=== PATIENT | female | born 1950 | race African-American/Black ===

== ENCOUNTER 2019-04-16 04:47 | Inpatient (IN) | payer OTHER, MEDICARE ==
[2019-04-16] VITALS (11 sets, daily range): BP systolic 84–116; BP diastolic 33–61
[~2019-04-16] VITALS: Ht 162.6 cm; Wt 66.2 kg
[2019-04-16] MEDS ORDERED: SODIUM CHLORIDE 0.9% 1,000 ML IV ONE (04:52)
[2019-04-16] MEDS ORDERED: ONDANSETRON HCL 4MG/2ML INJ IV STA (04:52)
[2019-04-16] MEDS ORDERED: ACETAMINOPHEN 650MG SUPP PR STA (04:52)
[2019-04-16] MEDS ORDERED: DEXTROSE 50% WATER 50ML SYRINGE IV ONE ×2 (04:57→05:00)
[2019-04-16] MEDS ORDERED: VANCOMYCIN 1 G PREMIX 200 ML IV ONE (05:00)
[2019-04-16] MEDS ORDERED: PIPERACILLIN/TAZ 3.375G PREMIX 50 ML IV ONE (05:00)
[2019-04-16] MEDS ORDERED: DEXT 10% WATER 1,000 ML IV ONE (05:00)
[2019-04-16 05:18] LABS: MEAN CORPUSCULAR HEMOGLOBIN 26.8 pg (28.0-32.0); MEAN CORPUSCULAR VOLUME 84.2 fL (81.0-99.0); MEAN PLATELET VOLUME 7.8 fl (7.4-10.4); PLATELET 109 x1000/uL (130-400); RED BLOOD CELL COUNT 1.85 mill/uL (4.2-5.4); RED CELL DISTRIBUTION WIDTH 14.9 % (11.6-14.6)
[2019-04-16 05:26] LABS: CHLORIDE 120 mEq/L (98-107); HEMATOCRIT. 15.6 % (36.0-48.0)
[2019-04-16 05:30] LABS: ETHANOL BLOOD < 10 mg/dL
[2019-04-16 05:54] LABS: PLATELET ESTIMATE DECREASED
[2019-04-16 06:33] LABS: CLARITY URINE CLOUDY (CLEAR); COLOR URINE YELLOW (YELLOW); KETONES URINE TRACE (NEGATIVE); LEUKOCYTE ESTERASE URINE NEGATIVE (NEGATIVE); NITRITE URINE NEGATIVE (NEGATIVE); OCCULT BLOOD URINE 1+ (NEGATIVE); PROTEIN URINE 1+ (NEGATIVE); SPECIFIC GRAVITY URINE 1.015 (1.005-1.030); UROBILINOGEN URINE 0.2 E.U./dL (0.2-1.0)
[2019-04-16 06:43] LABS: *BENZODIAZEPINES SCREEN URINE PRESUMTIVE POSITIVE (NEGATIVE); *COCAINE SCREEN URINE NEGATIVE (NEGATIVE); METHADONE URINE SCREEN NEGATIVE (NEGATIVE); OPIATES URINE SCREEN NEGATIVE (NEGATIVE); PHENCYCLIDINE URINE SCREEN NEGATIVE (NEGATIVE)
[2019-04-16 06:44] LABS: *AMPHETAMINES SCREEN URINE NEGATIVE (NEGATIVE); *BARBITURATES SCREEN URINE NEGATIVE (NEGATIVE); CANNABINOID URINE SCREEN NEGATIVE (NEGATIVE)
[2019-04-16] MEDS ORDERED: IBUPROFEN 400MG TABLET PO ONE (07:00)
[2019-04-16] MEDS ORDERED: ONDANSETRON HCL 4MG/2ML INJ IV PRN (10:00)
[2019-04-16] MEDS ORDERED: ACETAMINOPHEN 325MG TABLET PO PRN (10:00)
[2019-04-16] MEDS ORDERED: DEXTROSE 50% WATER 50ML SYRINGE IV PRN (10:45)
[2019-04-16] MEDS: BLOOD SUGAR DIAGNOSTIC STRIP TEST SCH ×3 (11:47→20:52)
[2019-04-16] MEDS ORDERED: DEXTROSE 10% WATER 1,000 ML IV SCH (12:30)
[2019-04-16 13:20] LABS: HEMATOCRIT 34.9 % (36.0-48.0); HEMOGLOBIN 11.5 g/dL (12.0-16.0)
[2019-04-16] MEDS: PIPERACILLIN/TAZOBACTAM 2.25 G in DEXTROSE 5% WATER 50 ML IV SCH ×3 (13:26→23:51)
[2019-04-17] VITALS (12 sets, daily range): BP systolic 96–152; BP diastolic 39–80
[2019-04-17] MEDS: PIPERACILLIN/TAZOBACTAM 2.25 G in DEXTROSE 5% WATER 50 ML IV SCH ×3 (04:58→17:24)
[2019-04-17] MEDS ORDERED: VANCOMYCIN 1 G PREMIX 200 ML IV SCH (06:00)
[2019-04-17] MEDS ORDERED: DEXTROSE 10% WATER 1,000 ML IV SCH (06:15)
[2019-04-17] MEDS: DEXT 10% WATER 1,000 ML IV SCH (06:36)
[2019-04-17 07:01] LABS: BASOPHILS % 0.3 % (0.0-2.0); EOSINOPHILS % 0.8 % (0.0-5.0); HEMATOCRIT. 34.9 % (36.0-48.0); HEMOGLOBIN. 11.5 g/dL (12.0-16.0); LYMPHOCYTES % 27.2 % (20.0-50.0); MEAN CORPUSCULAR HEMOGLOBIN 26.2 pg (28.0-32.0); MEAN CORPUSCULAR VOLUME 79.8 fL (81.0-99.0); MEAN PLATELET VOLUME 8.7 fl (7.4-10.4); NEUTROPHILS % 63.7 % (40.0-76.0); PLATELET 171 x1000/uL (130-400); RED BLOOD CELL COUNT 4.37 mill/uL (4.2-5.4); RED CELL DISTRIBUTION WIDTH 15.8 % (11.6-14.6)
[2019-04-17 07:14] LABS: CHLORIDE 113 mEq/L (98-107)
[2019-04-17 07:22] LABS: TOTAL IRON BINDING CAPACITY 235 ug/dL (250-450)
[2019-04-17 07:28] LABS: FOLIC ACID (FOLATE) SERUM 17.8 ng/mL (>5.38)
[2019-04-17] MEDS: BLOOD SUGAR DIAGNOSTIC STRIP TEST SCH ×4 (07:53→21:38)
[2019-04-17] MEDS ORDERED: REGADENOSON 0.4 MG/5 ML IV SCH (10:45)
[2019-04-17] MEDS ORDERED: REGADENOSON 0.4 MG/5 ML IV ONE (12:50)
[2019-04-17] MEDS: SOTALOL HCL 80MG TABLET PO SCH ×2 (14:01→21:00)
[2019-04-17] MEDS: VANCOMYCIN 750 MG PREMIX 150 ML IV SCH (21:16)
[2019-04-18] VITALS (12 sets, daily range): BP systolic 83–116; BP diastolic 28–79
[2019-04-18] MEDS: PIPERACILLIN/TAZOBACTAM 3.375 G in DEXT 5% WATER 100 ML IV SCH ×3 (00:30→12:26)
[2019-04-18] MEDS: DEXT 10% WATER 1,000 ML IV SCH ×2 (05:41→22:45)
[2019-04-18 07:25] LABS: BASOPHILS % 0.5 % (0.0-2.0); EOSINOPHILS % 2.2 % (0.0-5.0); HEMATOCRIT. 33.7 % (36.0-48.0); HEMOGLOBIN. 11.3 g/dL (12.0-16.0); LYMPHOCYTES % 37.1 % (20.0-50.0); MEAN CORPUSCULAR HEMOGLOBIN 26.6 pg (28.0-32.0); MEAN CORPUSCULAR VOLUME 79.3 fL (81.0-99.0); MEAN PLATELET VOLUME 8.6 fl (7.4-10.4); MONOCYTES % 4.7 % (2.0-8.0); NEUTROPHILS % 55.5 % (40.0-76.0); PLATELET 186 x1000/uL (130-400); RED BLOOD CELL COUNT 4.25 mill/uL (4.2-5.4); RED CELL DISTRIBUTION WIDTH 15.4 % (11.6-14.6)
[2019-04-18] MEDS: BLOOD SUGAR DIAGNOSTIC STRIP TEST SCH ×4 (07:25→21:00)
[2019-04-18 07:35] LABS: CHLORIDE 112 mEq/L (98-107)
[2019-04-18] MEDS: SOTALOL HCL 80MG TABLET PO SCH ×2 (08:53→21:24)
[2019-04-18] MEDS: VANCOMYCIN 750 MG PREMIX 150 ML IV SCH ×2 (08:54→21:24)
[2019-04-18] MEDS ORDERED: SOTA80TA25 PO (12:19)
[2019-04-18] MEDS: PANTOPRAZOLE 40MG DR TABLET PO SCH (17:42)
[2019-04-19] VITALS (12 sets, daily range): BP systolic 90–120; BP diastolic 52–68
[2019-04-19 07:14] LABS: PROTHROMBIN TIME 10.3 sec (9.6-11.0)
[2019-04-19] MEDS: BLOOD SUGAR DIAGNOSTIC STRIP TEST SCH ×4 (07:33→20:27)
[2019-04-19] MEDS: SOTALOL HCL 80MG TABLET PO SCH ×2 (08:12→20:27)
[2019-04-19] MEDS: VANCOMYCIN 750 MG PREMIX 150 ML IV SCH ×2 (08:12→20:26)
[2019-04-19] MEDS: PANTOPRAZOLE 40MG DR TABLET PO SCH ×2 (08:12→16:48)
[2019-04-19] MEDS ORDERED: FENTANYL CITRATE/PF 50MCG/ML 2ML VIAL ONE (16:51)
[2019-04-19] MEDS ORDERED: MIDAZOLAM HCL 5 MG/5 ML VIAL ONE (16:52)
[2019-04-19] MEDS ORDERED: FENTANYL CITRATE/PF 50MCG/ML 2ML VIAL IV NR (16:56)
[2019-04-19] MEDS ORDERED: MIDAZOLAM HCL 5 MG/5 ML VIAL IV PRN (16:58)
[2019-04-19 17:14] LABS: BASOPHILS % 0.8 % (0.0-2.0); EOSINOPHILS % 2.4 % (0.0-5.0); HEMATOCRIT. 33.7 % (36.0-48.0); LYMPHOCYTES % 35.1 % (20.0-50.0); MEAN CORPUSCULAR VOLUME 79.6 fL (81.0-99.0); MEAN PLATELET VOLUME 8.7 fl (7.4-10.4); MONOCYTES % 8.8 % (2.0-8.0); NEUTROPHILS % 52.9 % (40.0-76.0); PLATELET 196 x1000/uL (130-400); RED BLOOD CELL COUNT 4.24 mill/uL (4.2-5.4)
[2019-04-19 17:21] LABS: CHLORIDE 106 mEq/L (98-107)
[2019-04-19] MEDS: DEXT 10% WATER 1,000 ML IV SCH (18:45)
[2019-04-20] VITALS (11 sets, daily range): BP systolic 86–122; BP diastolic 45–66
[2019-04-20] MEDS: DEXT 10% WATER 1,000 ML IV SCH (05:27)
[2019-04-20] MEDS: BLOOD SUGAR DIAGNOSTIC STRIP TEST SCH ×4 (07:23→20:46)
[2019-04-20] MEDS: VANCOMYCIN 750 MG PREMIX 150 ML IV SCH ×2 (08:26→20:45)
[2019-04-20] MEDS: SOTALOL HCL 80MG TABLET PO SCH ×2 (08:27→20:45)
[2019-04-20] MEDS: PANTOPRAZOLE 40MG DR TABLET PO SCH ×2 (08:27→16:24)
[2019-04-20] MEDS: APIXABAN 5 MG TABLET PO SCH ×2 (10:56→16:24)
[2019-04-20] MEDS ORDERED: LOPERAMIDE HCL 2MG CAPSULE PO PRN (12:00)
[2019-04-21] VITALS (11 sets, daily range): BP systolic 82–113; BP diastolic 45–69
[2019-04-21] MEDS: DEXT 10% WATER 1,000 ML IV SCH (01:49)
[2019-04-21 06:02] LABS: CHLORIDE 103 mEq/L (98-107)
[2019-04-21 06:04] LABS: BASOPHILS % 0.6 % (0.0-2.0); EOSINOPHILS % 3.3 % (0.0-5.0); HEMATOCRIT. 29.6 % (36.0-48.0); HEMOGLOBIN. 10.1 g/dL (12.0-16.0); MEAN CORPUSCULAR HEMOGLOBIN 26.6 pg (28.0-32.0); MEAN CORPUSCULAR VOLUME 78.4 fL (81.0-99.0); MEAN PLATELET VOLUME 8.2 fl (7.4-10.4); MONOCYTES % 10.2 % (2.0-8.0); NEUTROPHILS % 50.9 % (40.0-76.0); PLATELET 192 x1000/uL (130-400); RED BLOOD CELL COUNT 3.78 mill/uL (4.2-5.4); RED CELL DISTRIBUTION WIDTH 14.6 % (11.6-14.6)
[2019-04-21] MEDS: BLOOD SUGAR DIAGNOSTIC STRIP TEST SCH ×4 (07:30→21:56)
[2019-04-21] MEDS: VANCOMYCIN 750 MG PREMIX 150 ML IV SCH (08:17)
[2019-04-21] MEDS: APIXABAN 5 MG TABLET PO SCH (08:19)
[2019-04-21] MEDS: PANTOPRAZOLE 40MG DR TABLET PO SCH ×2 (08:19→17:02)
[2019-04-21] MEDS: SOTALOL HCL 80MG TABLET PO SCH (09:00)
[2019-04-21] MEDS: DILTIAZEM HCL 30MG TABLET PO SCH ×2 (14:12→22:00)
[2019-04-21] MEDS: ASPIRIN 81MG EC TABLET PO SCH (14:12)
[2019-04-21] MEDS: DEXT 5%/0.45% NACL KCL 10MEQ/L 1,000 ML IV SCH (18:51)
[2019-04-22] MEDS ORDERED: BLOOD SUGAR DIAGNOSTIC STRIP TEST SCH (03:00)
[2019-04-22 05:55] LABS: BASOPHILS % 0.7 % (0.0-2.0); EOSINOPHILS % 2.9 % (0.0-5.0); HEMATOCRIT. 29.9 % (36.0-48.0); HEMOGLOBIN. 10.1 g/dL (12.0-16.0); LYMPHOCYTES % 33.8 % (20.0-50.0); MEAN CORPUSCULAR HEMOGLOBIN 26.5 pg (28.0-32.0); MEAN CORPUSCULAR VOLUME 78.6 fL (81.0-99.0); MEAN PLATELET VOLUME 8.3 fl (7.4-10.4); MONOCYTES % 8.1 % (2.0-8.0); NEUTROPHILS % 54.5 % (40.0-76.0); PLATELET 209 x1000/uL (130-400); RED BLOOD CELL COUNT 3.81 mill/uL (4.2-5.4); RED CELL DISTRIBUTION WIDTH 14.6 % (11.6-14.6)
[2019-04-22 05:58] LABS: CHLORIDE 107 mEq/L (98-107)
[2019-04-22] MEDS: DILTIAZEM HCL 30MG TABLET PO SCH ×2 (06:00→14:38)
[2019-04-22] MEDS: BLOOD SUGAR DIAGNOSTIC STRIP TEST SCH ×2 (07:30→12:30)
[2019-04-22 08:00] VITALS: BP 158/81
[2019-04-22] MEDS: ASPIRIN 81MG EC TABLET PO SCH (08:30)
[2019-04-22] MEDS: PANTOPRAZOLE 40MG DR TABLET PO SCH (08:35)
[2019-04-22] MEDS ORDERED: DIPHENHYDRAMINE 25MG CAPSULE PO PRN (09:15)
[2019-04-22 10:00] VITALS: BP 106/49
[2019-04-22] MEDS ORDERED: COSYNTROPIN 0.25MG/ML VIAL IV NR (10:30)
[2019-04-22] MEDS: DEXT 5%/0.45% NACL KCL 10MEQ/L 1,000 ML IV SCH (11:37)
[2019-04-22 12:00] VITALS: BP 123/70
[2019-04-22 13:00] VITALS: BP 99/54
[2019-04-22] MEDS ORDERED: HYDROCORTISONE SOD SUCCINATE 100 MG/2 ML VIAL IV SCH (13:15)
[2019-04-22 14:00] VITALS: BP 116/66
[2019-04-22 14:15] VITALS: BP 158/81
== END 2019-04-22 15:05 | disposition home or self-care (01) | DRG 871 ==
LOC: ER 04:47 → 5EST 05:25 → EDBEDREQTM 05:30 → EDBEDREQ 05:30 → ENRESERV 08:09
PROVIDERS: ADMIT Internal Medicine Nephrology; ATTEND Internal Medicine Nephrology
PROC: 30233N1 Transfusion of Nonautologous Red Blood Cells into Peripheral Vein, Percutaneous Approach (ICD-10-PCS; 2019-04-16)
PROC: 0DB98ZX Excision of Duodenum, Via Natural or Artificial Opening Endoscopic, Diagnostic (ICD-10-PCS; principal; 2019-04-19)
PROC: 0DB68ZX Excision of Stomach, Via Natural or Artificial Opening Endoscopic, Diagnostic (ICD-10-PCS; 2019-04-19)
DX: A41.9 Sepsis, unspecified organism (principal); I21.4 Non-ST elevation (NSTEMI) myocardial infarction; E43 Unspecified severe protein-calorie malnutrition; N17.0 Acute kidney failure with tubular necrosis; N39.0 Urinary tract infection, site not specified; D61.818 Other pancytopenia; I47.1 Supraventricular tachycardia; E27.1 Primary adrenocortical insufficiency; E27.40 Unspecified adrenocortical insufficiency; I48.92 Unspecified atrial flutter; E87.8 Other disorders of electrolyte and fluid balance, not elsewhere classified; E16.2 Hypoglycemia, unspecified; N18.9 Chronic kidney disease, unspecified; K52.9 Noninfective gastroenteritis and colitis, unspecified; E78.00 Pure hypercholesterolemia, unspecified; E78.5 Hyperlipidemia, unspecified; R73.9 Hyperglycemia, unspecified; E83.51 Hypocalcemia; I12.9 Hypertensive chronic kidney disease with stage 1 through stage 4 chronic kidney disease, or unspecified chronic kidney disease; I48.91 Unspecified atrial fibrillation; L23.9 Allergic contact dermatitis, unspecified cause; Z78.0 Asymptomatic menopausal state; Z80.3 Family history of malignant neoplasm of breast; Z80.41 Family history of malignant neoplasm of ovary; Z82.49 Family history of ischemic heart disease and other diseases of the circulatory system; Z85.3 Personal history of malignant neoplasm of breast; Z87.891 Personal history of nicotine dependence; Z92.21 Personal history of antineoplastic chemotherapy; Z92.3 Personal history of irradiation; Z91.013 Allergy to seafood; Z68.25 Body mass index [BMI] 25.0-25.9, adult
CPT/HCPCS: 36415; 71045; 78452; 80048; 80076; 80202; 80305; 80320; 81003; 82024; 82088; 82270; 82306; 82533; 82607; 82728; 82746; 82962; 83036; 83540; 83550; 83605; 83735; 84145; 84439; 84443; 84484; 85014; 85018; 86850; 86900; 86920; 87015; 87045; 87077; 87427; 87449; 87493; 87804; 88305; 88312; 88313; 89055; 93005; 93017; 93306; 96365; 96366; 96368; 96375; 97161; 99291; A9500; J0834; J1720; J2250; J2405; J2543; J2785; J3010; J3370; J7030; J7040; J7060; P9016; Q0163; G0480

== ENCOUNTER 2019-09-25 19:21 | Inpatient (IN) | payer OTHER, MEDICARE ==
[~2019-09-25] VITALS: Ht 167.6 cm; Wt 64.6 kg
[~2019-09-25 19:21] MED LIST: SOTA80TA25 PO
[2019-09-25] MEDS ORDERED: SODIUM CHLORIDE 0.9% 1,000 ML IV ONE (20:21)
[2019-09-25] MEDS ORDERED: ONDANSETRON HCL 4MG/2ML INJ IV STA (20:21)
[2019-09-25 21:10] LABS: BASOPHILS % 0.7 % (0.0-2.0); EOSINOPHILS % 1.3 % (0.0-5.0); HEMATOCRIT. 28.5 % (36.0-48.0); HEMOGLOBIN. 9.9 g/dL (12.0-16.0); LYMPHOCYTES % 48.7 % (20.0-50.0); MEAN CORPUSCULAR HEMOGLOBIN 26.6 pg (28.0-32.0); MEAN CORPUSCULAR VOLUME 76.6 fL (81.0-99.0); MEAN PLATELET VOLUME 6.7 fl (7.4-10.4); MONOCYTES % 6.3 % (2.0-8.0); PLATELET 295 x1000/uL (130-400); RED BLOOD CELL COUNT 3.72 mill/uL (4.2-5.4); RED CELL DISTRIBUTION WIDTH 13.1 % (11.6-14.6)
[2019-09-25 21:16] LABS: CHLORIDE 86 mEq/L (98-107)
[2019-09-26] VITALS (7 sets, daily range): BP systolic 98–121; BP diastolic 57–72
[2019-09-26] MEDS ORDERED: SODIUM CHLORIDE 0.45% 500 ML IV ONE (00:45)
[2019-09-26] MEDS ORDERED: DILT120T2 MT (01:03)
[2019-09-26] MEDS ORDERED: APIX5TAB MT (01:04)
[2019-09-26] MEDS ORDERED: ONDANSETRON HCL 4MG/2ML INJ IV PRN (01:30)
[2019-09-26] MEDS ORDERED: ACETAMINOPHEN 325MG TABLET PO PRN (01:30)
[2019-09-26] MEDS ORDERED: DEXTROSE 50% WATER 50ML SYRINGE IV PRN (01:30)
[2019-09-26] MEDS: SODIUM CHLORIDE 0.9% 1,000 ML IV SCH ×2 (02:27→14:50)
[2019-09-26] MEDS: BLOOD SUGAR DIAGNOSTIC STRIP TEST SCH ×4 (06:30→21:00)
[2019-09-26 07:27] LABS: BASOPHILS % 0.9 % (0.0-2.0); EOSINOPHILS % 1.8 % (0.0-5.0); HEMATOCRIT. 26.7 % (36.0-48.0); HEMOGLOBIN. 9.3 g/dL (12.0-16.0); MEAN CORPUSCULAR HEMOGLOBIN 26.7 pg (28.0-32.0); MEAN CORPUSCULAR VOLUME 76.7 fL (81.0-99.0); MEAN PLATELET VOLUME 7.7 fl (7.4-10.4); MONOCYTES % 5.9 % (2.0-8.0); NEUTROPHILS % 41.4 % (40.0-76.0); PLATELET 273 x1000/uL (130-400); RED BLOOD CELL COUNT 3.48 mill/uL (4.2-5.4); RED CELL DISTRIBUTION WIDTH 13.1 % (11.6-14.6)
[2019-09-26 07:29] LABS: CHLORIDE 92 mEq/L (98-107)
[2019-09-26] MEDS: INSULIN LISPRO 100 UNITS/ML SUBCUT SCH ×4 (07:50→21:00)
[2019-09-26] MEDS: DILTIAZEM HCL 120MG CAPSULE CD 24HR PO SCH (09:00)
[2019-09-26] MEDS: APIXABAN 5 MG TABLET PO SCH ×2 (09:24→16:26)
[2019-09-26 14:09] LABS: CLARITY URINE CLEAR (CLEAR); COLOR URINE YELLOW (YELLOW); KETONES URINE NEGATIVE (NEGATIVE); LEUKOCYTE ESTERASE URINE NEGATIVE (NEGATIVE); NITRITE URINE NEGATIVE (NEGATIVE); OCCULT BLOOD URINE 1+ (NEGATIVE); PROTEIN URINE NEGATIVE (NEGATIVE); SPECIFIC GRAVITY URINE 1.006 (1.005-1.030); UROBILINOGEN URINE 0.2 E.U./dL (0.2-1.0)
[2019-09-27] VITALS: BP 114/63
[2019-09-27 04:00] VITALS: BP 111/59
[2019-09-27] MEDS: SODIUM CHLORIDE 0.9% 1,000 ML IV SCH (05:07)
[2019-09-27 06:57] LABS: BASOPHILS % 1.1 % (0.0-2.0); EOSINOPHILS % 1.8 % (0.0-5.0); HEMATOCRIT. 27.1 % (36.0-48.0); HEMOGLOBIN. 9.5 g/dL (12.0-16.0); LYMPHOCYTES % 44.6 % (20.0-50.0); MEAN CORPUSCULAR HEMOGLOBIN 26.9 pg (28.0-32.0); MEAN CORPUSCULAR VOLUME 76.7 fL (81.0-99.0); MEAN PLATELET VOLUME 7.5 fl (7.4-10.4); MONOCYTES % 8.5 % (2.0-8.0); PLATELET 277 x1000/uL (130-400); RED BLOOD CELL COUNT 3.53 mill/uL (4.2-5.4); RED CELL DISTRIBUTION WIDTH 12.9 % (11.6-14.6)
[2019-09-27] MEDS: BLOOD SUGAR DIAGNOSTIC STRIP TEST SCH ×4 (07:20→21:00)
[2019-09-27 07:23] LABS: CHLORIDE 87 mEq/L (98-107)
[2019-09-27] MEDS: INSULIN LISPRO 100 UNITS/ML SUBCUT SCH ×4 (07:50→21:00)
[2019-09-27 08:00] VITALS: BP 112/67
[2019-09-27] MEDS: DILTIAZEM HCL 120MG CAPSULE CD 24HR PO SCH (09:52)
[2019-09-27] MEDS: APIXABAN 5 MG TABLET PO SCH ×2 (09:52→18:17)
[2019-09-27] MEDS ORDERED: COSYNTROPIN 0.25MG/ML VIAL IV SCH (15:00)
[2019-09-27] MEDS: DEXT 5%/0.9% NACL 1,000 ML IV SCH (19:13)
[2019-09-27 20:00] VITALS: BP 113/62
[2019-09-28] VITALS: BP 100/54
[2019-09-28 04:00] VITALS: BP 117/68
[2019-09-28] MEDS: DEXT 5%/0.9% NACL 1,000 ML IV SCH ×2 (04:41→17:15)
[2019-09-28 06:04] LABS: BASOPHILS % 0.7 % (0.0-2.0); EOSINOPHILS % 1.4 % (0.0-5.0); HEMATOCRIT. 27.7 % (36.0-48.0); HEMOGLOBIN. 9.6 g/dL (12.0-16.0); LYMPHOCYTES % 35.6 % (20.0-50.0); MEAN CORPUSCULAR HEMOGLOBIN 26.6 pg (28.0-32.0); MEAN CORPUSCULAR VOLUME 76.4 fL (81.0-99.0); MEAN PLATELET VOLUME 7.1 fl (7.4-10.4); MONOCYTES % 9.4 % (2.0-8.0); NEUTROPHILS % 52.9 % (40.0-76.0); PLATELET 280 x1000/uL (130-400); RED BLOOD CELL COUNT 3.62 mill/uL (4.2-5.4); RED CELL DISTRIBUTION WIDTH 13.1 % (11.6-14.6)
[2019-09-28 06:37] LABS: CHLORIDE 85 mEq/L (98-107)
[2019-09-28] MEDS: BLOOD SUGAR DIAGNOSTIC STRIP TEST SCH ×4 (07:49→21:46)
[2019-09-28] MEDS: INSULIN LISPRO 100 UNITS/ML SUBCUT SCH ×4 (07:50→21:00)
[2019-09-28 08:00] VITALS: BP 120/68
[2019-09-28] MEDS: DILTIAZEM HCL 120MG CAPSULE CD 24HR PO SCH (08:54)
[2019-09-28] MEDS: APIXABAN 5 MG TABLET PO SCH ×2 (08:54→17:15)
[2019-09-28] MEDS: FLUDROCORTISONE ACETATE 0.1MG TABLET PO SCH (10:23)
[2019-09-28] MEDS: HYDROCORTISONE 10MG TABLET PO SCH ×2 (10:26→17:00)
[2019-09-28 12:00] VITALS: BP 118/74
[2019-09-28 16:00] VITALS: BP 113/65
[2019-09-28 20:00] VITALS: BP 112/63
[2019-09-29] VITALS: BP 107/59
[2019-09-29 04:00] VITALS: BP 105/59
[2019-09-29] MEDS: DEXT 5%/0.9% NACL 1,000 ML IV SCH ×2 (06:15→21:12)
[2019-09-29] MEDS: INSULIN LISPRO 100 UNITS/ML SUBCUT SCH ×3 (06:58→17:15)
[2019-09-29] MEDS: BLOOD SUGAR DIAGNOSTIC STRIP TEST SCH ×4 (06:58→21:20)
[2019-09-29 07:06] LABS: BASOPHILS % 0.8 % (0.0-2.0); EOSINOPHILS % 0.6 % (0.0-5.0); HEMATOCRIT. 27.9 % (36.0-48.0); HEMOGLOBIN. 9.6 g/dL (12.0-16.0); LYMPHOCYTES % 29.3 % (20.0-50.0); MEAN CORPUSCULAR HEMOGLOBIN 26.3 pg (28.0-32.0); MEAN CORPUSCULAR VOLUME 76.6 fL (81.0-99.0); MEAN PLATELET VOLUME 7.4 fl (7.4-10.4); MONOCYTES % 12.9 % (2.0-8.0); NEUTROPHILS % 56.4 % (40.0-76.0); PLATELET 290 x1000/uL (130-400); RED BLOOD CELL COUNT 3.65 mill/uL (4.2-5.4); RED CELL DISTRIBUTION WIDTH 12.9 % (11.6-14.6)
[2019-09-29 07:39] LABS: CHLORIDE 91 mEq/L (98-107)
[2019-09-29 08:24] VITALS: BP 110/55
[2019-09-29] MEDS: APIXABAN 5 MG TABLET PO SCH ×2 (08:50→16:45)
[2019-09-29] MEDS: HYDROCORTISONE 10MG TABLET PO SCH ×3 (08:50→16:48)
[2019-09-29] MEDS: FLUDROCORTISONE ACETATE 0.1MG TABLET PO SCH (08:50)
[2019-09-29] MEDS: DILTIAZEM HCL 120MG CAPSULE CD 24HR PO SCH (08:51)
[2019-09-29 12:05] VITALS: BP 117/70
[2019-09-29 15:45] VITALS: BP 155/68
[2019-09-29 20:00] VITALS: BP 120/60
[2019-09-30] VITALS: BP 113/63
[2019-09-30 04:00] VITALS: BP 105/58
[2019-09-30 06:45] LABS: CHLORIDE 97 mEq/L (98-107)
[2019-09-30 06:50] LABS: PHOSPHORUS 2.8 mg/dL (2.5-4.9)
[2019-09-30 06:51] LABS: BASOPHILS % 1.2 % (0.0-2.0); EOSINOPHILS % 0.3 % (0.0-5.0); HEMATOCRIT. 26.8 % (36.0-48.0); HEMOGLOBIN. 9.1 g/dL (12.0-16.0); MEAN CORPUSCULAR HEMOGLOBIN 26.1 pg (28.0-32.0); MEAN CORPUSCULAR VOLUME 77.1 fL (81.0-99.0); MEAN PLATELET VOLUME 6.9 fl (7.4-10.4); MONOCYTES % 13.3 % (2.0-8.0); NEUTROPHILS % 46.2 % (40.0-76.0); PLATELET 287 x1000/uL (130-400); RED BLOOD CELL COUNT 3.47 mill/uL (4.2-5.4); RED CELL DISTRIBUTION WIDTH 13.3 % (11.6-14.6)
[2019-09-30 06:54] LABS: T4 FREE 0.71 ng/dL (0.76-1.46)
[2019-09-30] MEDS: BLOOD SUGAR DIAGNOSTIC STRIP TEST SCH ×4 (07:20→21:04)
[2019-09-30 08:00] VITALS: BP 107/62
[2019-09-30] MEDS: PREDNISONE 5MG TABLET PO SCH (10:14)
[2019-09-30] MEDS: APIXABAN 5 MG TABLET PO SCH ×2 (10:14→18:08)
[2019-09-30] MEDS: DILTIAZEM HCL 120MG CAPSULE CD 24HR PO SCH (10:14)
[2019-09-30 12:00] VITALS: BP 119/60
[2019-09-30] MEDS ORDERED: GADOBENATE DIMEGLUMINE 529 MG/ML 10ML IV ONE (13:22)
[2019-09-30 15:23] LABS: VITAMIN B12 SERUM 895 pg/mL (211-911)
[2019-09-30 20:00] VITALS: BP 103/54
[2019-09-30] MEDS: DEXT 5%/0.9% NACL 1,000 ML IV SCH (20:15)
[2019-10-01] VITALS: BP 107/51
[2019-10-01 04:00] VITALS: BP 107/62
[2019-10-01 05:48] LABS: CHLORIDE 96 mEq/L (98-107)
[2019-10-01] MEDS: BLOOD SUGAR DIAGNOSTIC STRIP TEST SCH ×4 (05:51→21:00)
[2019-10-01 06:36] LABS: HEMATOCRIT. 25.7 % (36.0-48.0); HEMOGLOBIN. 8.9 g/dL (12.0-16.0); MEAN CORPUSCULAR HEMOGLOBIN 26.6 pg (28.0-32.0); MEAN CORPUSCULAR VOLUME 77.2 fL (81.0-99.0); MEAN PLATELET VOLUME 7.2 fl (7.4-10.4); PLATELET 294 x1000/uL (130-400); RED BLOOD CELL COUNT 3.32 mill/uL (4.2-5.4); RED CELL DISTRIBUTION WIDTH 13.1 % (11.6-14.6)
[2019-10-01 08:00] VITALS: BP 108/62
[2019-10-01] MEDS: APIXABAN 5 MG TABLET PO SCH ×2 (09:08→17:24)
[2019-10-01] MEDS: PREDNISONE 5MG TABLET PO SCH (09:08)
[2019-10-01] MEDS: DILTIAZEM HCL 120MG CAPSULE CD 24HR PO SCH (09:09)
[2019-10-01 10:06] LABS: FOLICLE STIMULATING HORMONE 1.7 mIU/mL (.); LUTEINIZING HORMONE 0.7 mIU/mL (.); PROLACTIN 1.9 ng/mL (4.8-23.3)
[2019-10-01 11:26] LABS: PLATELET ESTIMATE NORMAL
[2019-10-01 12:00] VITALS: BP 106/70
[2019-10-01 16:00] VITALS: BP 99/62
[2019-10-01] MEDS: DEXT 5%/0.9% NACL 1,000 ML IV SCH (16:15)
[2019-10-01 20:00] VITALS: BP 130/70
[2019-10-01] MEDS ORDERED: IOHEXOL-350 100 ML BOTTLE ONE (20:49)
[2019-10-02] VITALS: BP 100/55
[2019-10-02 04:00] VITALS: BP 108/60
[2019-10-02] MEDS: BLOOD SUGAR DIAGNOSTIC STRIP TEST SCH (06:16)
[2019-10-02] MEDS ORDERED: LEVOTHYROXINE SODIUM 25MCG TABLET PO SCH (07:20)
[2019-10-02 08:00] VITALS: BP 107/65
[2019-10-02] MEDS ORDERED: PREDNISONE 5MG TABLET PO SCH (09:00)
[2019-10-02] MEDS: APIXABAN 5 MG TABLET PO SCH (09:33)
[2019-10-02] MEDS: DILTIAZEM HCL 120MG CAPSULE CD 24HR PO SCH (09:33)
[2019-10-02] MEDS ORDERED: LEVO25TA2 MT (10:06)
[2019-10-02] MEDS ORDERED: PRED5TAB MT (10:07)
[2019-10-02 10:09] VITALS: BP 108/60
[2019-10-02 10:12] VITALS: BP 108/60
== END 2019-10-02 12:35 | disposition home or self-care (01) | DRG 392 ==
LOC: ER 19:21 → 6WST 23:26 → EDBEDREQ 23:36 → ENRESERV 23:59
PROVIDERS: ADMIT Internal Medicine Nephrology; ATTEND Internal Medicine Nephrology
DX: K52.9 Noninfective gastroenteritis and colitis, unspecified (principal); E27.40 Unspecified adrenocortical insufficiency; E87.1 Hypo-osmolality and hyponatremia; E27.49 Other adrenocortical insufficiency; I48.92 Unspecified atrial flutter; E23.0 Hypopituitarism; D64.9 Anemia, unspecified; E11.649 Type 2 diabetes mellitus with hypoglycemia without coma; E78.5 Hyperlipidemia, unspecified; I48.91 Unspecified atrial fibrillation; E03.9 Hypothyroidism, unspecified; E83.51 Hypocalcemia; E78.00 Pure hypercholesterolemia, unspecified; K46.9 Unspecified abdominal hernia without obstruction or gangrene; Z85.3 Personal history of malignant neoplasm of breast; I25.2 Old myocardial infarction; Z79.01 Long term (current) use of anticoagulants; Q27.9 Congenital malformation of peripheral vascular system, unspecified; Z80.1 Family history of malignant neoplasm of trachea, bronchus and lung; Z80.3 Family history of malignant neoplasm of breast; Z80.41 Family history of malignant neoplasm of ovary; Z87.891 Personal history of nicotine dependence; Z92.21 Personal history of antineoplastic chemotherapy; Z92.3 Personal history of irradiation; Z88.8 Allergy status to other drugs, medicaments and biological substances
CPT/HCPCS: 36415; 70496; 70553; 71045; 74018; 80048; 80053; 81003; 82024; 82533; 82607; 82962; 83001; 83002; 83036; 83520; 83735; 83930; 84100; 84146; 84439; 84443; 84484; 85025; 86376; 93005; 99285; A9577; J0834; J2405; J7030; J7042; J7512; Q9967

== ENCOUNTER 2022-11-18 10:41 | Emergency (ER) | payer MEDICARE, BC ==
[~2022-11-18] VITALS: Ht 167.6 cm; Wt 79.0 kg
[~2022-11-18 10:41] MED LIST changes: +APIX5TAB MT; +DILT120T2 MT; +LEVO25TA2 MT; +PRED5TAB MT; -SOTA80TA25 PO
[2022-11-18 11:37] LABS: BASOPHILS % 0.7 % (0.0-2.0); EOSINOPHILS % 1.4 % (0.0-5.0); HEMATOCRIT. 33.9 % (36.0-48.0); HEMOGLOBIN. 11.2 g/dL (12.0-16.0); LYMPHOCYTES % 35.9 % (20.0-50.0); MEAN CORPUSCULAR HEMOGLOBIN 27.4 pg (28.0-32.0); MEAN CORPUSCULAR VOLUME 82.9 fL (81.0-99.0); MEAN PLATELET VOLUME 8.1 fl (7.4-10.4); MONOCYTES % 6.6 % (2.0-8.0); NEUTROPHILS % 55.4 % (40.0-76.0); PLATELET 256 x1000/uL (130-400); RED BLOOD CELL COUNT 4.09 mill/uL (4.2-5.4); RED CELL DISTRIBUTION WIDTH 14.7 % (11.6-14.6)
[2022-11-18 11:46] LABS: CHLORIDE 104 mEq/L (98-107)
[2022-11-18] MEDS ORDERED: FLUT9.9S BOTHNSTRLS (14:01)
[2022-11-18] MEDS ORDERED: P50 MT (14:01)
[2022-11-18] MEDS ORDERED: CLAR10 MT (14:01)
[2022-11-18 14:43] VITALS: BP 158/75
== END 2022-11-18 14:45 | disposition home or self-care (01) ==
LOC: ER 10:41
DX: R05.9 Cough, unspecified (principal); I48.91 Unspecified atrial fibrillation; E11.9 Type 2 diabetes mellitus without complications; E78.00 Pure hypercholesterolemia, unspecified; Z20.822 Contact with and (suspected) exposure to COVID-19
CPT/HCPCS: 36415; 71045; 80053; 83880; 84484; 85025; 87426; 93005; 99285; C9803